=== PATIENT | female | born 1995 | race Caucasian/White ===

== ENCOUNTER 2018-06-17 13:50 | Emergency (ER) | payer BC, MEDICAID ==
[2018-06-17] MEDS ORDERED: diphenhydrAMINE 25 MG Cap PO ONE (13:55)
[2018-06-17] MEDS ORDERED: Famotidine 20 MG Tab PO ONE (13:55)
--- NOTE | 2018-06-17 13:56 | EDM.PDOC ---
ED HPI GENERAL MEDICAL PROBLEM - General Chief Complaint: Allergic Reaction Stated Complaint: POSS ALLERGIC REACTION Time Seen by Provider: 06/17/18 13:51 Source of Information: Reports: Patient, RN, RN Notes Reviewed History Limitations: Reports: No Limitations - History of Present Illness INITIAL COMMENTS - FREE TEXT/NARRATIVE: Patient presents to the ED at [facility] for the evaluation of possible allergic reaction. The patient states that while she was at work, someone used her e-cigarette. The person who apparently used the e-cigarette had eaten shrimp , which the patient is allergic to. The patient states she noticed lip swelling and tongue numbness after she used her own e-cigarette. The patient did use one dose of epi, which did seem to help. The patient does not complain of any shortness of breath or airway problems.The patient appears to be somewhat anxious. No focal neurological problems. No chest pain. No other swelling or reaction the patient is aware of. Onset: Today, Sudden Onset Date: 06/17/18 - Related Data Allergies Allergy/AdvReac Type Severity Reaction Status Date / Time iodine Allergy Anaphylactic Verified 02/27/14 14:51 Shock Home Meds: Home Meds Amoxicillin/Potassium Clav [Augmentin 500-125 Tablet] 1 each PO BID #14 tablet 02/27/14 [Rx] Vits #93/Iron Fum/FA [ Formula Tablet] 1 each PO DAILY [History] ED ROS ALLERGIC REACTION - Review of Systems Review Of Systems: See Below Constitutional: Denies: Fever, Chills HEENT: Reports: Other (lip swelling with tongue numbness). Denies: Rhinitis, Throat Swelling Respiratory: Denies: Shortness of Breath, Cough Cardiovascular: Denies: Chest Pain, Palpitations Skin: Reports: No Symptoms Neurological: Reports: No Symptoms ED EXAM GENERAL NO PERIP PULSE - Physical Exam Exam: See Below Exam Limited By: No Limitations General Appearance: Alert, No Apparent Distress Nose: Normal Inspection Throat/Mouth: Normal Inspection, Normal Lips, Normal Oropharynx, Normal Voice, No Airway Compromise Neck: Supple Respiratory/Chest: No Respiratory Distress, Lungs Clear, Normal Breath Sounds Cardiovascular: Normal Peripheral Pulses, Regular Rate, Rhythm GI/Abdominal: Normal Bowel Sounds, Soft, Non-Tender Neurological: Alert, Oriented Skin Exam: Warm, Dry, Intact, Normal Color Course - Orders/Labs/Meds Meds: Medications Discontinued Medications Generic Name Dose Route Start Last Admin Trade Name Dom PRN Reason Stop Dose Admin Diphenhydramine HCl 50 mg 06/17/18 13:55 Benadryl PO 06/17/18 13:56 ONETIME ONE Famotidine 20 mg 06/17/18 13:55 Pepcid PO 06/17/18 13:56 ONETIME ONE Departure - Departure Time of Disposition: 14:02 Disposition: Home, Self-Care 01 Condition: Good Clinical Impression: Allergic reaction to shellfish - Discharge Information *PRESCRIPTION DRUG MONITORING PROGRAM REVIEWED*: Not Applicable *COPY OF PRESCRIPTION DRUG MONITORING REPORT IN PATIENT DEEP: Not Applicable Instructions: Allergies, Adult, Anaphylactic Reaction, Adult Referrals: Emani Faust DO [Primary Care Provider] - Forms: ED Department Discharge Additional Instructions: 1. Stay well hydrated and rest 2. Continue to use your Epi Pen as prescribed 3. May take additional Benadryl if needed 4. See your PCP as symptoms warrant 5. 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 No additional Epi warranted. Will give Pepcid and Benadryl PO and observe patient. Patient is aware of her allergy and states she will be more careful. Instructed patient on the continued use of Epi if needed. See PCP or return to this ER as symptoms warrant.
== END 2018-06-17 14:15 | disposition home or self-care (01) ==
LOC: VM.ED 13:50
DX: T78.1XXA Other adverse food reactions, not elsewhere classified, initial encounter (principal); R60.9 Edema, unspecified; Z91.048 Other nonmedicinal substance allergy status
CPT/HCPCS: 99283; A9270-GY; Q0163